=== PATIENT | male | born 1990 | race Caucasian/White ===

== ENCOUNTER 2018-09-01 15:40 | Emergency (ER) | payer OTHER, SELFPAY ==
[~2018-09-01] VITALS: Ht 188 cm; Wt 90.7 kg
[2018-09-01 15:41] VITALS: BP 118/80
--- NOTE | 2018-09-01 15:48 | NUR ---
ED Nurse Note: Patient brought in to ER by [employer] for residential clearance. per pt, he started vomiting this morning and mild abdominal discomfort 3/10 reported. pt aao x4 and ambulatory. calm and cooperative. skin dry but intact. no open wound noted.
[2018-09-01] MEDS ORDERED: Lidocaine 2% Visc 15ml soln ORAL ONE (16:15)
[2018-09-01] MEDS ORDERED: Mylanta II UD 30ml ORAL ONE (16:15)
--- NOTE | 2018-09-01 16:16 | Emergency Room Report ---
History of Present Illness General Chief Complaint: Medical Clearance Source: Patient Present Illness HPI 28-year-old male presents to the emergency department for medical clearance for incarceration. Patient is currently reporting that he vomited twice today once this morning and wants at the police station. Patient reports 5 out of 10 in severity epigastric pain that is exacerbated during episodes of vomiting. Patient denies vomiting blood he denies lead in the stool or black tarry stools. He denies fevers, chills, chest pain, dizziness,SOB, open wounds or bleeding. Patient states that he is an IV drug user and he regularly uses Borges salts and smokes cigarettes. He has no other complaints at this time. Allergies: Coded Allergies: No Known Allergies (Unverified , 09/01/18) Patient History Past Medical History: see triage record Past Surgical History: none Pertinent Family History: none Reviewed Nursing Documentation: PMH: Agreed; PSxH: Agreed Nursing Documentation-PMH Past Medical History: No Stated History Review of Systems All Other Systems: negative except mentioned in HPI Physical Exam Vital Signs Date Time Temp Pulse Resp B/P (MAP) Pulse Ox O2 Delivery O2 Flow Rate FiO2 09/01/18 15:36 100 18 118/80 95 Room Air 09/01/18 15:41 97.9 Sp02 EP Interpretation: reviewed, normal General Appearance: no apparent distress, alert, GCS 15, non-toxic Head: normocephalic, atraumatic Eyes: bilateral eye normal inspection, bilateral eye PERRL ENT: hearing grossly normal, normal voice Neck: full range of motion Respiratory: chest non-tender, lungs clear, normal breath sounds, speaking full sentences Cardiovascular #1: regular rate, rhythm Gastrointestinal: normal bowel sounds, soft, non-distended, no guarding, tenderness - mild tenderness to deep palpation epigastrically. Rectal: deferred Genitourinary: normal inspection Musculoskeletal: back normal, gait/station normal, normal range of motion, non- tender Neurologic: alert, oriented x3, responsive, motor strength/tone normal, sensory intact, normal gait, speech normal, grossly normal Psychiatric: judgement/insight normal Skin: normal color, no rash, warm/dry, well hydrated Lymphatic: no adenopathy Medical Decision Making PA Attestation Dr. gonzales is my supervising Physician whom patient management has been discussed with. Diagnostic Impression: Primary Impression: Medical clearance for incarceration Additional Impression: NAUSEA WITH VOMITING, UNSPECIFIED ER Course 28-year-old male presents to the emergency department for medical clearance for incarceration. Patient is currently reporting that he vomited twice today once this morning and wants at the police station. Patient reports 5 out of 10 in severity epigastric pain that is exacerbated during episodes of vomiting. Patient denies vomiting blood he denies lead in the stool or black tarry stools. He denies fevers, chills, chest pain, dizziness,SOB, open wounds or bleeding. Patient states that he is an IV drug user and he regularly uses Borges salts and smokes cigarettes. He has no other complaints at this time. Ddx considered but are not limited to Head Trauma, NH, ACS, SI/HI, URI, SAH, Fractures, Dislocations, Tazer barbs, Abrasions. Vital signs: are WNL, pt. is afebrile H&PE are most consistent with: normal limited physical examination. ORDERS: none required at this time, the diagnosis is clinical ED INTERVENTIONS: -Zofran IM -GI Cocktail PO Patient is able to tolerate oral intake. DISCHARGE: At this time pt. is stable for d/c to law enforcement. Will provide printed patient care instructions, and any necessary prescriptions. Care plan and follow up instructions have been discussed with the patient prior to discharge. Last Vital Signs Date Time Temp Pulse Resp B/P (MAP) Pulse Ox O2 Delivery O2 Flow Rate FiO2 09/01/18 15:41 100 18 Room Air 09/01/18 15:41 97.9 118/80 95 Disposition: HOME, SELF-CARE Condition: Stable Departure Forms: Alf Clearance Patient Instructions: Medical Screening Exam, Nausea and Vomiting, Adult, Easy- to-Read Additional Instructions: Take medications as directed. Follow up with a Primary Care Provider in 3-5 days, even if your symptoms have resolved. --Please review list of primary care clinics, if you do not already have a primary care provider Return sooner to ED if new symptoms occur, or current symptoms become worse. - Please note that this Emergency Department Report was dictated using [employer] sales representative technology software, occasionally this can lead to erroneous entry secondary to interpretation by the dictation equipment. Yolanda Whittington September 01, 2018 16:16
[2018-09-01 16:30] VITALS: BP 118/80
--- NOTE | 2018-09-01 16:31 | NUR ---
ER DISCHARGE NOTE: Patient is cleared to be discharged per ERPA with correction clearance, pt is aox4, on room air, with stable vital signs. pt was given dc instructions, pt was able to verbalize understanding, pt id band removed. pt is able to ambulate with steady gait with handcuff on. pt took all belongings.
== END 2018-09-01 16:30 | disposition home or self-care (01) ==
LOC: EDBD 15:40 → EMR 16:21
DX: R10.13 Epigastric pain (principal); R11.2 Nausea with vomiting, unspecified
CPT/HCPCS: 96372; 99283; J2405

== ENCOUNTER 2018-11-17 20:37 | Emergency (ER) | payer SELFPAY ==
[~2018-11-17] VITALS: Ht 188 cm; Wt 86.2 kg
--- NOTE | 2018-11-17 20:47 | Emergency Room Report ---
History of Present Illness General Chief Complaint: Skin Rash/Abscess Source: Patient Present Illness HPI 28-year-old male, no past medical history, no surgical history presents with a rash on the wrist, he thinks he may have been bitten by something, he denies any fever chills, he endorses some mild swelling, and some redness which he thinks a spider bite, he endorses a sharp pain aggravated by touching, alleviated by not touching it, no f/c, cp sob. Allergies: Coded Allergies: No Known Allergies (Unverified , 09/01/18) Patient History Past Medical History: see triage record Social History: Reports: smoking Reviewed Nursing Documentation: PMH: Agreed; PSxH: Agreed Review of Systems All Other Systems: negative except mentioned in HPI Physical Exam Vital Signs Date Time Temp Pulse Resp B/P (MAP) Pulse Ox O2 Delivery O2 Flow Rate FiO2 11/17/18 20:38 98.1 91 18 137/82 (100) 96 Room Air Sp02 EP Interpretation: reviewed, normal General Appearance: well appearing, no apparent distress, alert Head: normocephalic, atraumatic Eyes: bilateral eye PERRL, bilateral eye EOMI ENT: uvula midline, moist mucus membranes Neck: supple, thyroid normal, supple/symm/no masses Respiratory: lungs clear, no respiratory distress, no retraction, no accessory muscle use Cardiovascular #1: normal peripheral pulses, regular rate, rhythm, no edema, no gallop, no murmur Gastrointestinal: non tender, soft, no guarding, no rebound Musculoskeletal: normal inspection Neurologic: alert, oriented x3 Psychiatric: mood/affect normal Skin: warm/dry, other - Left ulnar aspect of wrist: A raised lesion, with mild erythema, no fluctuance, mild tenderness to palpation, lesion measures 0.5 cm x 0.5 cm Medical Decision Making ER Course Patient with most likely a possible cellulitis, there is a break in skin, Bactrim provided, disposition home with return precautions. Last Vital Signs Date Time Temp Pulse Resp B/P (MAP) Pulse Ox O2 Delivery O2 Flow Rate FiO2 11/17/18 20:38 98.1 91 18 137/82 (100) 96 Room Air Disposition: HOME, SELF-CARE Condition: Stable Scripts Trimethoprim/Sulfamethoxazole 160/800* (BACTRIM DS TABLET*) 1 Each Tablet 1 TAB ORAL Q12H, #14 TAB 0 Refills Prov: Jeremy Rodrigez M.D. 11/17/18 Patient Instructions: Cellulitis, [id number] Additional Instructions: The patient was provided with discharge instructions, notified to follow-up with a primary care doctor and or specialist in the next 24-48 hours, and to return to the ED if they have worsening of their symptoms. Please note that this report is being documented using [employer] technology. This can lead to erroneous entry secondary to incorrect interpretation by the dictating instrument. Jeremy Rodrigez M.D. Nov 17, 2018 20:47
--- NOTE | 2018-11-17 20:48 | NUR ---
ED Nurse Note: Patient walked in C/O a bite to left wrist area. pain 11/10. VSS . sen by with ABx order of bactrim, however refused first dose here.
[2018-11-17] MEDS ORDERED: BACTRIM DS TAB1 EAC1 ORAL (20:49)
[2018-11-17 20:52] VITALS: BP 132/80
[2018-11-17 20:58] VITALS: BP 128/80
--- NOTE | 2018-11-17 20:58 | NUR ---
ED Nurse Note: Prescription reviewed with patient and was discharged.
[2018-11-17] MEDS ORDERED: Bactrim-DS 1 tab ORAL ONE (21:00)
== END 2018-11-17 20:58 | disposition home or self-care (01) ==
LOC: EMR 20:58
DX: R21 Rash and other nonspecific skin eruption (principal); F17.200 Nicotine dependence, unspecified, uncomplicated
CPT/HCPCS: 99282